=== PATIENT | female | born 1955 | race Caucasian/White ===

== ENCOUNTER 2017-04-30 12:11 | Inpatient (IN) | END 2017-05-06 10:50 | disposition home or self-care (01) | DRG 330 | DX: K57.00 Diverticulitis of small intestine with perforation and abscess without bleeding (principal); D68.61 Antiphospholipid syndrome; M32.9 Systemic lupus erythematosus, unspecified; I10 Essential (primary) hypertension; E78.5 Hyperlipidemia, unspecified; H40.9 Unspecified glaucoma; M85.80 Other specified disorders of bone density and structure, unspecified site; E87.6 Hypokalemia; E83.42 Hypomagnesemia; Z79.02 Long term (current) use of antithrombotics/antiplatelets; Z86.718 Personal history of other venous thrombosis and embolism ==

== ENCOUNTER 2017-08-06 14:50 | Emergency (ER) | payer MEDICARE ==
[~2017-08-06] VITALS: Wt 62.5 kg
[~2017-08-06 14:50] MED LIST: APIX2.5T PO; CALC-143 PO; COMBIG5 BOTH EYES; DIFL5DRO OP; GABA-526 PO; GABA300C16 PO; LATA2.5D2 BOTH EYES; METO-335 PO; MYCO500T3 PO; POTA10TA37 PO; PRED10TA PO; SIMV40TA2 PO
--- NOTE | 2017-08-06 19:07 | ERD ---
ER Documentation Chief Complaint Chief Complaint non traumatic headache with no neuro def. sent by pmd for ct HPI 62-year-old woman referred here by PMD for CT imaging of the brain for headache 2 months. She has had right sided headache constant daily for 2 months but denies other symptoms. She denies pain, no paresis or paresthesias, no weight loss, no vomiting no blurry vision, no weakness in her arms or legs. ROS All systems reviewed and are negative except as per history of present illness. Medications Home Meds Active Scripts Prednisone* (Prednisone*) 10 Mg Tab, 10 MG PO DAILY for 30 Days, #30 TAB Prov:KAT OLMEDO MD 05/06/17 Reported Medications Calcium Citrate/Vitamin D (Citracal-Vitamin D 200 MG-250) 1 Each Tablet, 1 EACH PO BID, TAB 05/01/17 Apixaban* (Eliquis*) 2.5 Mg Tablet, 2.5 MG PO BID, TAB 05/01/17 Potassium Chloride* (K-Dur*) 10 Meq Tab.prt.sr, 10 MEQ PO TID, TAB 05/01/17 Gabapentin* (Gabapentin*) 300 Mg Capsule, 300 MG PO TID, #90 CAP 05/01/17 Difluprednate (Durezol) 5 Ml Drops, 1 DROP OP BID, BOTTLE 05/01/17 Latanoprost (Latanoprost) 2.5 Ml Drops, 1 DROP BOTH EYES QHS, #1 BOTTLE 05/01/17 Difluprednate (Durezol) 5 Ml Drops, 1 DROP OP BID, BOTTLE 05/01/17 Brimonidine/Timolol* (Combigan*) 5 Ml Drops, 1 DROP BOTH EYES BID, BOTTLE 05/01/17 Apixaban* (Eliquis*) 2.5 Mg Tablet, 2.5 MG PO BID, TAB 04/30/17 Metoprolol Succinate* (Toprol XL*) 25 Mg Tab.sr.24h, 25 MG PO DAILY, #30 TAB 04/30/17 Gabapentin* (Gabapentin*) 600 Mg Tablet, 300 MG PO TID, #90 TAB 04/30/17 Mycophenolate Mofetil* (Mycophenolate Mofetil*) 500 Mg Tablet, 1000 MG PO BID, TAB 04/30/17 Simvastatin* (Zocor*) 40 Mg Tablet, 40 MG PO QHS, #30 TAB 04/30/17 Allergies Allergies: Coded Allergies: No Known Allergy (Unverified , 04/30/17) PMhx/Soc 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 and partial jejunal resection, SLE and DVT on anticoagulation therapy, stroke, hypertension, hyperlipidemia, osteopenia History of Surgery: Yes (BOTH EYES SURGERY ,CORNEA TRANSPLANT ,KIDNEY ,BONE MARROW BIOPSY) Anesthesia Reaction: No Hx Neurological Disorder: No (STROKE -1990) Hx Respiratory Disorders: No Hx Cardiac Disorders: No Hx Psychiatric Problems: No Hx Miscellaneous Medical Probl: Yes (STROKE) Hx Alcohol Use: No Hx Substance Use: No Hx Tobacco Use: No Smoking Status: Never smoker FmHx Family History: No diabetes Physical Exam Vitals Vital Signs Date Time Temp Pulse Resp B/P Pulse Ox O2 Delivery O2 Flow Rate FiO2 08/06/17 21:25 98.2 82 20 126/81 98 Room Air 08/06/17 14:55 98.2 57 20 107/63 98 Physical Exam GENERAL: Well-developed, well-nourished, well-hydrated, in no apparent distress , looks nontoxic in appearance HEENT: Moist mucous membranes, bilateral conjunctival injection, no cervical spine tenderness or step-off deformities, no goiter, no jaundice or icterus, extraocular movements intact without pain. No submandibular induration, and no pharyngeal erythema NEURO: Alert and oriented 3, cranial nerves II through XII intact bilaterally, pupils equal round reactive to light, no focal deficits or facial asymmetry, sensation intact distally Strength 5/5 in upper and lower extremities bilaterally CARDIAC: Regular rate and rhythm, no murmurs rubs or gallops LUNGS: Clear bilaterally no wheezing crackles or stridor ABDOMEN: Soft nontender, no guarding, no rigidity, no rebound, no psoas sign no obturator sign. Normoactive bowel sounds SKIN: Warm and dry to touch, no abrasions, contusions, or hematomas, no lacerations, no ecchymosis, no target lesions, and without ulcers EXTREMITIES: No clubbing cyanosis or edema, calves are bilaterally symmetrical, no Homans sign, no popliteal cord sign. Distal pulses equal and bilateral PSYCH: Normal affect without agitation or irritability Procedures/MDM CT scan of the brain was negative for acute bleed mass or shift. Patient refused analgesics. I spoke to the patient's primary care physician Dr. Olmedo regarding her CT brain imaging results and he agreed to see her as an outpatient he recommended discharge and follow-up with him. Differential diagnoses considered, included but not limited to acute coronary syndrome, pulmonary embolism, aortic dissection, abdominal aortic aneurysm, sepsis, stroke, meningitis, encephalitis, pneumonia, appendicitis, cholecystitis , bowel obstruction, pyelonephritis, nephrolithiasis, cystitis, as well as metabolic, hematologic, and electrolyte abnormalities. As well as abscess, cellulitis, fractures, and dislocations. Patient feels much better at this time, and vital signs are normal, symptoms have improved. I did give strict instructions to return to the ED if symptoms continue or worsen, patient will otherwise follow-up with primary care physician. Patient understood instructions and agreed to plan. Disclaimer: Inadvertent spelling and grammatical errors are likely due to EHR/ dictation software use and do not reflect on the overall quality of patient care. Also, please note that the electronic time recorded on this note does not necessarily reflect the actual time of the patient encounter. Departure Diagnosis: Primary Impression: Headache Headache type: tension-type Headache chronicity pattern: acute headache Intractability: not intractable Qualified Code: G44.209 - Acute non intractable tension-type headache Condition: SALAZAR Colmenares MD Aug 06, 2017 19:07
--- NOTE | 2017-08-06 19:55 | RADRPT ---
PROCEDURE: CT Brain without contrast. CLINICAL INDICATION: Headaches. TECHNIQUE: A CT of the brain was performed on multidetector high-resolution CT scanner utilizing a xial sections from the skull base through the vertex without contrast. One or more of the following dose reduction techniques were used: Automated exposure control, Adjustment of the mA and/or kV acc ording to patient size, and/or use of iterative reconstruction technique. DOSE: CTDI = 45 mGy and the DLP = 720 mGy-cm. COMPARISON: None available FINDINGS: No acute intracranial hemorrhage, significant mass effect or midline shift. Patchy hypoattenuation o f the cerebral white matter is compatible with chronic microvascular ischemic changes. Chronic left frontal and left parietal-occipital infarcts. Vascular calcifications. Prominence of the cortical gaitan lci and ventricles are related to mild cerebral volume loss. No significant opacification of the vi sualized paranasal sinuses or mastoids. IMPRESSION: No acute intracranial hemorrhage or mass effect. Moderate chronic microvascular disease and intracranial atherosclerosis. Chronic left frontal and left parietal-occipital infarcts. RPTAT: AA .Ronald Ferrara MD, Date Time Electronically viewed and signed by .Ronald Ferrara MD, on 08/06/2017 19:55 .T/
[2017-08-06 21:25] VITALS: BP 126/81; PULSE 82; RESP 20; TEMP 98.2
== END 2017-08-06 21:26 | disposition home or self-care (01) ==
LOC: E/R 14:50
DX: G44.209 Tension-type headache, unspecified, not intractable (principal); I10 Essential (primary) hypertension; Z79.01 Long term (current) use of anticoagulants
CPT/HCPCS: 70450

== ENCOUNTER → 2019-04-05 | Outpatient (CLI) | payer MEDICARE ==
[~2019-04-05] MED LIST changes: -POTA10TA37 PO
== END | disposition home or self-care (01) ==
LOC: LAB 12:54
PROVIDERS: ATTEND Internal Medicine
DX: J20.9 Acute bronchitis, unspecified (principal); D68.59 Other primary thrombophilia; D64.9 Anemia, unspecified; R07.89 Other chest pain
CPT/HCPCS: 71046; 80053; 85025; 85610; 85730; 93005

== ENCOUNTER 2019-04-17 07:30 | Observation (INO) | payer MEDICARE ==
[~2019-04-17] VITALS: Ht 160 cm; Wt 64.2 kg
[~2019-04-17 07:30] MED LIST changes: +ESCI10TA48 PO; +SIMV40TA3 PO
[2019-05-15] VITALS (21 sets, daily range): BP systolic 97–123; BP diastolic 55–74; PULSE 58–66; RESP 12–25; Ht 160 cm; Wt 64.2 kg
[2019-05-15] MEDS: SOD CHLORIDE 0.9% 1,000 ML IV SCH ×2 (06:41→19:20)
[2019-05-15] MEDS ORDERED: POLYMYXIN/BACITRACIN 1L IRRIG IRR ONE (06:55)
[2019-05-15] MEDS ORDERED: POLYMYXIN/BACITRACIN 1L IRRIG ONE (07:12)
--- NOTE | 2019-05-15 07:22 | PREAC ---
Date/Time of Note Date/Time of Note DATE: 05/15/19 TIME: 07:20 Anesthesia Eval and Record Evaluation Time Pre-Procedure Interview DATE: 05/15/19 TIME: 07:20 Age 64 Sex female NPO: 8 hrs Preoperative diagnosis incisional hernia Planned procedure open incisional hernia repair with mesh Past Medical History Past Medical History: Includes Cardio: HTN, Dyslipidemia Neuro: CVA Musculoskeletal: Other (sle, antiophospholipid syndrome on Eeliquis stoppeed on jun 11) Surgery & Anesthesia Issues No known issue Meds Anticoagulation: No Beta Scott within 24 hr: No Reason Beta Scott not given: Pt. not on B-Scott Reported Medications Apixaban* (Eliquis*) 2.5 Mg Tablet, 2.5 MG PO BID, TAB 05/15/19 Simvastatin (Simvastatin) 40 Mg Tablet, 40 MG PO DAILY, #30 TAB 05/15/19 Metoprolol Succinate* (Toprol XL*) 25 Mg Tab.sr.24h, 25 MG PO DAILY, #30 TAB 05/15/19 Gabapentin* (Gabapentin*) 300 Mg Capsule, 300 MG PO TID, #90 CAP 05/15/19 Mycophenolate Mofetil* (Mycophenolate Mofetil*) 500 Mg Tablet, 500 MG PO BID, TAB 05/15/19 Escitalopram Oxalate* (Escitalopram Oxalate*) 10 Mg Tablet, 10 MG PO DAILY, #30 TAB 05/15/19 Discontinued Reported Medications Calcium Citrate/Vitamin D (Citracal-Vitamin D 200 MG-250) 1 Each Tablet, 1 EACH PO BID, TAB 05/01/17 Apixaban* (Eliquis*) 2.5 Mg Tablet, 2.5 MG PO BID, TAB 05/01/17 Gabapentin* (Gabapentin*) 300 Mg Capsule, 300 MG PO TID, #90 CAP 05/01/17 Difluprednate (Durezol) 5 Ml Drops, 1 DROP OP BID, BOTTLE 05/01/17 Latanoprost (Latanoprost) 2.5 Ml Drops, 1 DROP BOTH EYES QHS, #1 BOTTLE 05/01/17 Brimonidine/Timolol* (Combigan*) 5 Ml Drops, 1 DROP BOTH EYES BID, BOTTLE 05/01/17 Apixaban* (Eliquis*) 2.5 Mg Tablet, 2.5 MG PO BID, TAB 04/30/17 Metoprolol Succinate* (Toprol XL*) 25 Mg Tab.sr.24h, 25 MG PO DAILY, #30 TAB 04/30/17 Gabapentin* (Gabapentin*) 600 Mg Tablet, 300 MG PO TID, #90 TAB 04/30/17 Mycophenolate Mofetil* (Mycophenolate Mofetil*) 500 Mg Tablet, 1000 MG PO BID, TAB 04/30/17 Simvastatin* (Zocor*) 40 Mg Tablet, 40 MG PO QHS, #30 TAB 04/30/17 Discontinued Scripts Prednisone* (Prednisone*) 10 Mg Tab, 10 MG PO DAILY for 30 Days, #30 TAB Prov:KAT OLMEDO MD 05/06/17 Current Medications Cefazolin Sodium/ Dextrose 50 ml @ 100 mls/hr ONCE ONCE IVPB ; Start 05/15/19 at 08:00; Stop 05/15/19 at 08:29 Sodium Chloride 1,000 ml @ 75 mls/hr [id number] IV Last administered on 05/15/19at 06:41; Admin Dose 75 MLS/HR; Start 05/15/19 at 06:00; Stop 05/15/19 at 23:00 Meds reviewed: Yes Allergies Coded Allergies: No Known Allergy (Unverified , 05/15/19) Allergies Reviewed: Yes Labs/Studies Labs Reviewed: Reviewed by anesthesiologist test: N/A Studies: ECG (SR), CXR (NAPD) Pre-procedure Exam Last vitals Vital Signs Date Temp Pulse Resp B/P (MAP) Pulse Ox O2 O2 Flow FiO2 Time Delivery Rate 05/15/19 97.4 58 18 117/65 96 Room Air 07:01 (82) Airway: Adequate mouth opening, Adequate thyromental dist Mallampati: Mallampati II Teeth: Abnormal (PARTIAL LOWER DENTURES) Lung: Normal Heart: Normal ASA Physical Status ASA physical status: 2 Emergency: None Planned Anesthetic General/MAC: ETT Nerve block: TAP (bilateral) Planned Pain Management Single shot nerve block, Parenteral pain med Pre-operative Attestations Prior to commencing anesthesia and surgery, the patient was re-evaluated, there was verification of: *The patient's identity *The results of appropriate recent lab work and preoperative vital signs *The above evaluation not changing prior to induction *Anesthetic plan, risk benefits, alternative and complications discussed with patient/family; questions answered; patient/family understands, accepts and wishes to proceed. Vel Buitrago M.D. May 15, 2019 07:22
[2019-05-15] MEDS ORDERED: FENTAnyl 50 MCG/ML VIAL IV PRN ×3 (07:30)
[2019-05-15] MEDS ORDERED: LABETALOL HCL 20MG INJ IV PRN (07:30)
[2019-05-15] MEDS ORDERED: OXYCODONE/ACETAMINOPHEN (5/325) TAB PO PRN ×2 (07:30)
[2019-05-15] MEDS ORDERED: ONDANSETRON 4 MG INJ IV PRN ×2 (07:30→10:30)
[2019-05-15] MEDS ORDERED: EPHEDrine 25 MG/5 ML SYG IV PRN (07:30)
[2019-05-15] MEDS ORDERED: MEPERIDINE 25 MG INJ IV PRN (07:30)
[2019-05-15] MEDS ORDERED: ALBUTEROL 0.083% (NEB) 2.5 MG/3 ML AMP HHN PRN (07:30)
[2019-05-15] MEDS ORDERED: TRIMETHOBENZAMIDE 100 MG/ML VIAL IM PRN (07:30)
[2019-05-15] MEDS ORDERED: DIPHENHYDRAMINE 50 MG INJ IV PRN (07:30)
[2019-05-15] MEDS ORDERED: MIDAZOLAM 1 MG/ML 2 ML INJ IV PRN (07:30)
[2019-05-15] MEDS ORDERED: hydrALAzine 20 MG INJ IV PRN (07:30)
[2019-05-15] MEDS ORDERED: HYDROmorphONE 1 MG/5 ML IV SYRINGE IV PRN ×3 (07:30)
[2019-05-15] MEDS ORDERED: IPRATROPIUM (NEB) 0.5 MG/2.5 ML AMP HHN PRN (07:30)
--- NOTE | 2019-05-15 07:42 | HPN ---
Date/Time of Note Date/Time of Note DATE: 05/15/19 TIME: 07:42 Interval H&P Admission Note Pt. seen H&P reviewed: No system changes RUCHI LITTLEJOHN MD May 15, 2019 07:42
[2019-05-15] MEDS ORDERED: ROCURONIUM 50 MG INJ ONE (07:47)
[2019-05-15] MEDS ORDERED: CEFAZOLIN 1 GM INJ ONE (07:47)
[2019-05-15] MEDS ORDERED: NEOSTIGMINE 3 MG/3 ML SYRINGE ONE (07:47)
[2019-05-15] MEDS ORDERED: DESFLURANE 15 MIN ONE (07:47)
[2019-05-15] MEDS ORDERED: PROPOFOL 20 ML ONE (07:47)
[2019-05-15] MEDS ORDERED: GLYCOPYRROLATE 0.4 MG INJ ONE (07:47)
[2019-05-15] MEDS ORDERED: ONDANSETRON 4 MG INJ ONE (07:51)
[2019-05-15] MEDS ORDERED: MIDAZOLAM 1 MG/ML 2 ML INJ ONE (07:51)
[2019-05-15] MEDS ORDERED: DEXAMETHASONE 4 MG/ML 5 ML INJ ONE (07:51)
[2019-05-15] MEDS ORDERED: FENTAnyl 50 MCG/ML VIAL ONE (07:51)
[2019-05-15] MEDS ORDERED: ROPIVACAINE 0.5 % 30 ML VIAL ONE (07:57)
[2019-05-15] MEDS ORDERED: CEFAZOLIN 2 GM/50 ML (PMX) 50 ML IVPB ONE (08:00)
[2019-05-15] MEDS ORDERED: SUGAMMADEX SODIUM 200 MG/2 ML VIAL IV ONE (09:59)
--- NOTE | 2019-05-15 10:27 | OPR ---
Date/Time of Note Date/Time of Note DATE: 05/15/19 TIME: 10:14 Operative Report Procedure Date: May 15, 2019 Preoperative Diagnosis Incisional hernia without obstruction or gangrene Postoperative Diagnosis Incisional hernia without obstruction or gangrene Operation/Procedure Performed 1. Open repair of incisional hernia with mesh 2. Implantation of biological extracellular matrix 3. Placement of drain Surgeon see signature line Dye Line Operator Lui Connolly MD Anesthesia Type: general Anesthesiologist: Vel Buitrago M.D. Estimated Blood Loss: minimal Transfusion none Specimen Hernia sac Grafts/Implants 1. Bard Ventrio ST mesh 13 x 17cm 2. ACell biologic extracellular matrix, 8 layer, 10 x 15 cm Tubes/Drains 15 Indonesian round Karan drain Complications none Pt Condition Post Procedure: stable Disposition: PACU Indications The patient is a 64-year-old female with multiple comorbidities including a prior exploratory laparotomy and small bowel resection for jejunal diverticul itis who presented to the office with a bulge of the midline abdominal wall involving her prior incision. She had clinical signs and symptoms of a reducible incisional hernia. CT scan was performed which showed findings consistent with a large incisional hernia containing nonobstructed small bowel. She was scheduled for elective repair to prevent sequelae of hernia disease which include, but are not limited to: Incarceration and strangulation. All risks and benefits of the procedure including, but not limited to: Wound infection, excessive bleeding, postoperative seroma/hematoma formation, injury to intra-abdominal organs, hernia recurrence, chronic pain, etc. were all explained to the patient in full detail. Patient fully understood and wished to proceed with the procedure. Informed consent was obtained. Procedure Description Patient was brought to the operating room and placed supine on the operating table. Bilateral sequential compression devices were placed on both lower extremities. A dose of broad-spectrum perioperative intravenous antibiotics was given. After the induction of smooth general anesthesia the patient's abdomen was prepped and draped in standard surgical fashion. A tap block was performed prior to starting the procedure by the anesthesiologist and will be documented separately by him. After performance of the surgical timeout an elliptical incision was made around the patient's prior midline periumbilical incision using a 15 blade scalpel. Incision was taken down through the skin and dermis into the subcutaneous tissues using sharp dissection. The prior scar was excised and passed off the field. Dissection was taken deep to the subcutaneous tissues where a large hernia sac was identified. The bowel contents of the hernia were spontaneously reduced on induction of anesthesia. The hernia sac was atraumatically opened. It was dissected free of the surrounding tissues down to the level of the anterior rectus fascia. The sac was then transected at its base and passed off the field as specimen. Circumferential local advancement flaps were then raised the deep subcutaneous tissues off of the fascia to allow for placement of the mesh. The underside of the abdominal cavity was examined. There were no adhesions. Once adequate dissection was done, the hernia defect which measured approximately 8 cm in maximal dimension was then repaired using a 13 x 17cm piece of Bard Ventrio ST Mesh in an underlay fashion. The mesh was soaked in antibiotic irrigation prior to placement in the field. The mesh was secured in place using #0-PDS sutures circumferentially in interrupted fashion. Further reinforcement was done using an open tacking device with absorbable tacks. Once the mesh was secured in place circumferentially was noted to be tension-free and hemostatic. The fascia was then reapproximated over the mesh using a #1 PDS sutures in evwbig-sh-bdfiw fashion. To aid in tissue reinforcement and regeneration, and to prevent infection and 8 layer piece of ACell extracellular biologic matrix sheet was placed in an onlay fashion over the anterior fascia. It was secured in place using interrupted 2-0 Vicryl sutures. Small nicks were made in the mesh to allow for seroma drainage. The ACell mesh was soaked and hydrated prior to insertion in the field. Once this portion of the procedure was completed a 15 Indonesian round Karan drain was placed on top of the fascia, brought out through separate stab incision in the lower abdomen, secured in place using a 2-0 nylon suture and connected to bulb suction. The deep tissues were then reapproximated using a running 2-0 Vicryl suture. The umbilicus was tacked back down to the fascia using interrupted 3-0 Vicryl suture. The skin was then reapproximated using skin diana. Incision was cleaned and sterile dressings were applied as well as an abdominal binder. The patient was awoken from anesthesia and transported to the recovery room in stable condition. All counts were correct at the end of the case 2. RUCHI LITTLEJOHN MD May 15, 2019 10:26
[2019-05-15] MEDS ORDERED: ACETAMINOPHEN 325 MG TAB PO PRN (10:30)
--- NOTE | 2019-05-15 10:32 | PAC ---
Date/Time of Note Date/Time of Note DATE: 05/15/19 TIME: 10:31 Post-Anesthesia Notes Post-Anesthesia Note Last documented vital signs Vital Signs Date Temp Pulse Resp B/P (MAP) Pulse Ox O2 O2 Flow FiO2 Time Delivery Rate 05/15/19 62 22 112/61 98 Nasal 2.0 10:20 (78) Cannula 05/15/19 98.4 10:15 Activity: WNL Respiratory function: WNL Cardiovascular function: WNL Mental status: Baseline Pain reasonably controlled: Yes Hydration appropriate: Yes Nausea/Vomiting absent: Yes Vel Buitrago M.D. May 15, 2019 10:32
[2019-05-15] MEDS: morphine 4 MG/ML VIAL IV PRN ×2 (11:49→16:19)
[2019-05-15] MEDS: DEXTROSE 5%-0.45% NACL 1,000 ML IV SCH ×2 (11:49→23:49)
[2019-05-15] MEDS: DOCUSATE SODIUM 100 MG CAP PO SCH ×2 (13:00→21:23)
[2019-05-15] MEDS ORDERED: morphine 4 MG/ML VIAL IV STA (18:16)
[2019-05-15] MEDS ORDERED: morphine 4 MG/ML VIAL IV PRN (18:30)
--- NOTE | 2019-05-15 20:44 | PN ---
DATE: 05/15/2019 The patient is a 63-year-old lady well known to me from previous followup, with a rather complicated medical history, with history of systemic lupus erythematosus with antiphospholipid syndrome, hyperte nsion, hyperlipidemia, on chronic anticoagulant therapy, being admitted for repair of incisional lalitha ia. The patient underwent open repair of incisional hernia with mesh, placement of drain by Dr. Hugo blanca. The patient was seen postop. Presently, patient complaining of severe pain. PHYSICAL EXAMINATION: VITAL SIGNS: Temperature 97.7, blood pressure 103/56, O2 sats 96%. GENERAL: Mild pallor without cyanosis. CHEST: Clinically clear. HEART: S1, S2 with no definite gallops. EXTREMITIES: No edema. IMPRESSION: 1. Status post incisional hernia repair. 2. Systemic lupus with antiphospholipid syndrome with hypercoagulable state. 3. Mild hypertension. 4. Hyperlipidemia. 5. Status post previous cerebrovascular accident. PLAN: We will continue treatment per Dr. Littlejohn. Recheck labs in a.m. Continue narcotic analgesia. We will restart anticoagulants tomorrow if okay with Dr. Littlejohn. Dictated By: KAT OLMEDO MD SR/NTS Conf#: [id number] DID#: [id number] CC: RUCHI LITTLEJOHN MD;*EndCC*
[2019-05-15] MEDS: OXYCODONE/ACETAMINOPHEN (5/325) TAB PO PRN (21:22)
[2019-05-15] MEDS: FAMOTIDINE 20 MG TAB PO SCH (21:23)
[2019-05-16 02:33] VITALS: BP 92/50; PULSE 60; RESP 17
[2019-05-16] MEDS: OXYCODONE/ACETAMINOPHEN (5/325) TAB PO PRN ×3 (06:07→17:15)
[2019-05-16 07:19] VITALS: BP 90/52; PULSE 58; RESP 19
[2019-05-16] MEDS: DOCUSATE SODIUM 100 MG CAP PO SCH ×3 (09:09→21:41)
[2019-05-16] MEDS: FAMOTIDINE 20 MG TAB PO SCH ×2 (09:09→21:41)
--- NOTE | 2019-05-16 09:45 | PN ---
Date/Time of Note Date/Time of Note DATE: 05/16/19 TIME: 09:42 Assessment/Plan Lines/Catheters IV Catheter Type (from Nrsg): Peripheral IV Ponce in Place (from Nrsg): No Assessment/Plan Assessment/Plan 64-year-old female status post open incisional hernia repair with mesh postop day #1 * Out of bed/incentive spirometry * Pain control * Physical therapy * Hep-Lock IV fluids * Can restart on home meds * Would restart anticoagulation in 24 hours if remains stable. * We will keep today for pain control. If condition improves, possible discharge home in a.m. Subjective 24 Hr Interval Summary Feels a little better than yesterday, but still with pain requiring narcotic pain control. Tolerating a diet. Drain output 115 cc serosanguineous. Afebrile. Exam/Review of Systems Vital Signs Vitals Vital Signs Date Temp Pulse Resp B/P (MAP) Pulse Ox O2 O2 Flow FiO2 Time Delivery Rate 05/16/19 98.2 58 19 90/52 (65) 96 07:19 05/15/19 Room Air 13:15 05/15/19 2.0 10:35 Intake and Output 05/15/19 05/15/19 05/16/19 1515:00 23:00 07:00 IntakeIntake Total 3300 ml 490 ml 550 ml OutputOutput Total 35 ml 410 ml BalanceBalance 3265 ml 80 ml 550 ml Exam Free Text/Dictation GENERAL: Awake, alert, oriented x 3. No acute distress. SKIN: No jaundice. HEENT: PERRLA, EOMI, No Scleral Icterus NECK: Supple without JVD CARDIOVASCULAR: S1S2, regular rate and rhythm. No murmurs appreciated. RESPIRATORY: Clear to auscultation bilaterally. ABDOMEN: Soft, bowel sounds present, nondistended, appropriate incisional tenderness to palpation. No rebound, guarding or evidence of peritonitis INCISIONS: Clean, dry, intact EXTREMITIES: Free range of motion x 4. No cyanosis, edema, or clubbing. NEUROLOGIC: Cranial nerves II-XII are intact. Sensation is intact grossly. Results Result Diagram: 05/16/19 0444 05/16/19 0444 RUCHI LITTLEJOHN MD May 16, 2019 09:45
[2019-05-16] MEDS: METOPROLOL 25 MG TAB PO SCH (10:00)
[2019-05-16] MEDS: GABAPENTIN 300 MG CAP PO SCH ×3 (10:55→21:41)
[2019-05-16] MEDS: ESCITALOPRAM 10 MG TAB PO SCH (10:55)
[2019-05-16] MEDS: DEXTROSE 5%-0.45% NACL 1,000 ML IV SCH (13:01)
[2019-05-16 14:18] VITALS: BP 101/54; PULSE 64; RESP 19
--- NOTE | 2019-05-16 17:03 | PN ---
DATE: 05/16/2019 SUBJECTIVE: The patient continues , much better than yesterday. Denies any nausea. Presently having her lunch. Denies any cough or chest pain. PHYSICAL EXAMINATION VITAL SIGNS: Temperature 98.2, blood pressure 90/52, O2 sats 96% on room air. LUNGS: Clinically clear. HEART: S1, S2 heard. No gallops. ABDOMEN: Bowel sounds are present. EXTREMITIES: No edema. LABORATORY DATA: WBC count 10.9, hematocrit 39.6. Sodium 139, potassium 3.9, BUN 8, creatinine 0.50 . IMPRESSION: 1. Status post incisional hernia repair. 2. Systemic lupus with antiphospholipid syndrome with hypercoagulable state on oral anticoagulant of Eliquis. 3. Mild hypertension. 4. Hyperlipidemia. 5. Status post prior cerebrovascular accident. PLAN: Continue narcotic analgesia. Surgical recommendations per Dr. Littlejohn. Start the patient on El iquis starting tomorrow. Dictated By: KAT OLMEDO MD SR/NTS Conf#: [id number] DID#: [id number] CC: RUCHI LITTLEJOHN MD;*EndCC*
[2019-05-16 20:41] VITALS: BP 121/72; PULSE 67; RESP 18
[2019-05-17] MEDS: DEXTROSE 5%-0.45% NACL 1,000 ML IV SCH ×2 (02:30→15:50)
[2019-05-17 07:33] VITALS: BP 116/56; PULSE 75; RESP 17
[2019-05-17] MEDS: DOCUSATE SODIUM 100 MG CAP PO SCH ×2 (09:00→14:11)
[2019-05-17] MEDS: FAMOTIDINE 20 MG TAB PO SCH (09:00)
[2019-05-17] MEDS: METOPROLOL 25 MG TAB PO SCH (09:01)
[2019-05-17] MEDS: GABAPENTIN 300 MG CAP PO SCH ×2 (09:01→14:11)
[2019-05-17] MEDS: ESCITALOPRAM 10 MG TAB PO SCH (09:01)
[2019-05-17] MEDS: OXYCODONE/ACETAMINOPHEN (5/325) TAB PO PRN (12:19)
[2019-05-17] MEDS ORDERED: MAGNESIUM HYDROXIDE 30ML CUP PO ONE (14:00)
--- NOTE | 2019-05-17 14:36 | PN ---
Date/Time of Note Date/Time of Note DATE: 05/17/19 TIME: 14:36 Assessment/Plan Lines/Catheters IV Catheter Type (from Nrsg): Saline Lock Ponce in Place (from Nrsg): No Assessment/Plan Assessment/Plan 64-year-old female status post open incisional hernia repair with mesh postop day #2 * Stable * Home health has been arranged * Continue drain * Can restart Eliquis * Stable for discharge home with home health and drain teaching * Follow-up in office in 1 week Subjective 24 Hr Interval Summary Feeling better. Pain controlled. Tolerating diet. Drain output 70 cc serosanguineous. Afebrile. Exam/Review of Systems Vital Signs Vitals Vital Signs Date Temp Pulse Resp B/P (MAP) Pulse Ox O2 O2 Flow FiO2 Time Delivery Rate 05/17/19 98.6 75 17 116/56 94 Room Air 07:33 (76) 05/15/19 2.0 10:35 Intake and Output 05/16/19 05/16/19 05/17/19 1515:00 23:00 07:00 IntakeIntake Total 1100 ml 880 ml 250 ml OutputOutput Total 40 ml 170 ml 210 ml BalanceBalance 1060 ml 710 ml 40 ml Exam Free Text/Dictation GENERAL: Awake, alert, oriented x 3. No acute distress. SKIN: No jaundice. HEENT: PERRLA, EOMI, No Scleral Icterus NECK: Supple without JVD CARDIOVASCULAR: S1S2, regular rate and rhythm. No murmurs appreciated. RESPIRATORY: Clear to auscultation bilaterally. ABDOMEN: Soft, bowel sounds present, nondistended, appropriate incisional tenderness to palpation which is improved from yesterday. No rebound, guarding or evidence of peritonitis INCISIONS: Clean, dry, intact EXTREMITIES: Free range of motion x 4. No cyanosis, edema, or clubbing. Results Result Diagram: 05/16/19 0444 05/16/19 0444 RUCHI LITTLEJOHN MD May 17, 2019 14:36
--- NOTE | 2019-05-17 14:38 | PDOCDIS ---
Discharge Instructions DIAGNOSIS Discharge Diagnosis Incisional hernia CONDITION [id number] Patient Condition: [id number] Stable HOME CARE INSTRUCTIONS: [id number] Diet Instructions: Xpnko5c Regular ACTIVITY: Eqfzo5Oc Activity Restrictions: [id number] Avoid heavy lifting Avoid Heavy Housework [id number] Bathing Restrictions: Uqfaz2p Shower FOLLOW UP/APPOINTMENTS Follow-up Plan Follow-up in office in 1 week RUCHI LITTLEJOHN MD May 17, 2019 14:38
--- NOTE | 2019-05-17 14:43 | DS ---
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 She had clinical signs and symptoms of a reducible incisional hernia. CT scan was performed which showed findings consistent with a large incisional hernia containing nonobstructed small bowel. She was scheduled for elective repair to prevent sequelae of hernia disease which include, but are not limited to: Incarceration and strangulation. Hospital Course Patient was admitted postprocedure for pain control. She is currently stable with her pain adequately controlled, tolerating diet. Home Meds Reported Medications Apixaban* (Eliquis*) 2.5 Mg Tablet, 2.5 MG PO BID, TAB 05/15/19 Simvastatin (Simvastatin) 40 Mg Tablet, 40 MG PO DAILY, #30 TAB 05/15/19 Metoprolol Succinate* (Toprol XL*) 25 Mg Tab.sr.24h, 25 MG PO DAILY, #30 TAB 05/15/19 Gabapentin* (Gabapentin*) 300 Mg Capsule, 300 MG PO TID, #90 CAP 05/15/19 Mycophenolate Mofetil* (Mycophenolate Mofetil*) 500 Mg Tablet, 500 MG PO BID, TAB 05/15/19 Escitalopram Oxalate* (Escitalopram Oxalate*) 10 Mg Tablet, 10 MG PO DAILY, #30 TAB 05/15/19 Discontinued Reported Medications Calcium Citrate/Vitamin D (Citracal-Vitamin D 200 MG-250) 1 Each Tablet, 1 EACH PO BID, TAB 05/01/17 Apixaban* (Eliquis*) 2.5 Mg Tablet, 2.5 MG PO BID, TAB 05/01/17 Gabapentin* (Gabapentin*) 300 Mg Capsule, 300 MG PO TID, #90 CAP 05/01/17 Difluprednate (Durezol) 5 Ml Drops, 1 DROP OP BID, BOTTLE 05/01/17 Latanoprost (Latanoprost) 2.5 Ml Drops, 1 DROP BOTH EYES QHS, #1 BOTTLE 05/01/17 Brimonidine/Timolol* (Combigan*) 5 Ml Drops, 1 DROP BOTH EYES BID, BOTTLE 05/01/17 Apixaban* (Eliquis*) 2.5 Mg Tablet, 2.5 MG PO BID, TAB 04/30/17 Metoprolol Succinate* (Toprol XL*) 25 Mg Tab.sr.24h, 25 MG PO DAILY, #30 TAB 04/30/17 Gabapentin* (Gabapentin*) 600 Mg Tablet, 300 MG PO TID, #90 TAB 04/30/17 Mycophenolate Mofetil* (Mycophenolate Mofetil*) 500 Mg Tablet, 1000 MG PO BID, TAB 04/30/17 Simvastatin* (Zocor*) 40 Mg Tablet, 40 MG PO QHS, #30 TAB 04/30/17 Discontinued Scripts Prednisone* (Prednisone*) 10 Mg Tab, 10 MG PO DAILY for 30 Days, #30 TAB Prov:PETR OLMEDO MD 05/06/17 Follow-up Plan Follow-up in office in 1 week Primary Care Provider Petr Olmedo MD Time spent on discharge: > 30 minutes RUCHI LITTLEJOHN MD May 17, 2019 14:43
[2019-05-17 14:50] VITALS: BP 104/59; PULSE 65; RESP 18
--- NOTE | 2019-05-17 17:05 | PN ---
DATE: 05/17/2019 SUBJECTIVE: The patient complains of moderate nausea, vomited once in morning. OBJECTIVE: VITAL SIGNS: Temperature 98.6, blood pressure 116/56, O2 saturation 94% on room air. LUNGS: Clinically clear. ABDOMEN: Mildly distended. EXTREMITIES: No edema. IMPRESSION: 1. Status post incisional hernia repair. 2. Systemic lupus with antiphospholipid syndrome with hypercoagulable state on anticoagulant therapy . 3. Mild hypertension. 4. Hyperlipidemia. 5. Status post prior cerebrovascular accident. PLAN: Continue present management. Start the patient on Eliquis. Follow recommendations by Dr. Mai . Dictated By: KAT OLMEDO MD SR/NTS Conf#: [id number] DID#: [id number] CC: RUCHI LITTLEJOHN MD;*EndCC*
== END 2019-05-17 16:10 | disposition home or self-care (01) ==
LOC: EDSTATUS 07:30 → REC 05-15 05:48 → INTOOBSV 05-15 05:48 → MS1 05-15 11:40
PROVIDERS: ADMIT Surgery; ATTEND Surgery
DX: K43.2 Incisional hernia without obstruction or gangrene (principal); M32.9 Systemic lupus erythematosus, unspecified; I10 Essential (primary) hypertension; E78.5 Hyperlipidemia, unspecified; Z79.01 Long term (current) use of anticoagulants; Z86.73 Personal history of transient ischemic attack (TIA), and cerebral infarction without residual deficits
CPT/HCPCS: 15777; 49560; 49568; 80053; 83735; 85025; 88302; 97116; 97161; 97530; C1781; G0378; J0690; J1100; J2250; J2270; J2405; J2710; J2795; J3010; J7030; J7042; Q4166; 99217

== ENCOUNTER → 2019-05-08 | Outpatient (CLI) | payer MEDICARE ==
--- NOTE | 2019-05-12 16:42 | HP ---
DATE OF ADMISSION: 05/08/2019 HISTORY OF PRESENT ILLNESS: The patient is a 63-year-old lady who is being admitted for incisional h ernia repair with possible mesh placement by Dr. Irvin. The patient has a complicated medical histor y with history of lupus with antiphospholipid syndrome. The patient has been on chronic anticoagulan t therapy. She was hospitalized 2 years ago for acute abdomen with perforated jejunal diverticulum, status post exploratory laparotomy, small bowel resection and drainage of mesenteric abscess. 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 No history of seizures. The patient has since rec overed completely and has been ambulatory and functioning well. EYES: The patient has decreased vision in the eye, status post ruptured globe repair from dehisced k eratoplasty at [facility]. ENT: Noncontributory. NECK: No history of thyroid disease. CHEST: No bronchitis, hay fever or asthma. The patient does not smoke. HEART: No PND, orthopnea, palpitations. No history of PA. History of hyperlipidemia and hypertensi on. GASTROINTESTINAL: As above. GENITOURINARY: No dysuria, hematuria, kidney stones. MEDICATIONS: The patient had previously been on: 1. Coumadin. 2. Lovenox. 3. Arixtra. 4. She is being managed on Eliquis 2.5 mg p.o. b.i.d. 5. Simvastatin 40 mg daily. 6. Escitalopram 10 mg daily. 7. Gabapentin 600 mg 3 times a day. 8. Metoprolol succinate 25 mg daily. FAMILY HISTORY: Noncontributory. PHYSICAL EXAMINATION: GENERAL: The patient is an average-built female who is presently in no acute distress. VITAL SIGNS: Blood pressure 130/80, respiratory 20 per minute. HEENT: Head is normocephalic. Mild pallor without cyanosis. Tongue is moist. NECK: Supple. No thyromegaly, bruits or lymphadenopathy. LUNGS: Clinically clear. HEART: S1, S2 heard. No definite gallops. ABDOMEN: Soft, nontender, no hepatosplenomegaly. EXTREMITIES: No edema. Pedal pulses are 2+ bilaterally. Homans sign is negative. NEUROLOGIC: No localizing or lateralizing signs. LABORATORY DATA: Sodium 141, potassium 4.3, BUN 15, creatinine 0.57. Calcium 9.8, alkaline phosphat ase 113. WBC count 6.8, hematocrit 43.5. PT/INR 0.9, PTT 29.9. DIAGNOSTIC DATA: Chest x-ray shows normal size heart, lung abdalla are clear. EKG shows normal sinus rhythm, no acute changes. IMPRESSION: 1. Incisional hernia, symptomatic. 2. Systemic lupus erythematosus with antiphospholipid syndrome with hypercoagulable state. 3. Status post prior cerebrovascular accident. 4. Hypertension. 5. Hyperlipidemia. PLAN: The patient's overall medical condition is stable for the proposed surgery by Dr. Irvin. We w ill closely follow the patient while she is in the hospital. Dictated By: KAT OLMEDO MD SR/SARAH Conf#: [id number] DID#: [id number]
== END | disposition home or self-care (01) ==
LOC: LAB 11:47
PROVIDERS: ATTEND Internal Medicine
DX: J20.9 Acute bronchitis, unspecified (principal); D64.9 Anemia, unspecified
CPT/HCPCS: 71046; 80053; 85025; 85610; 85730